=== PATIENT | male | born 1940 | race Caucasian/White ===

== ENCOUNTER → 2017-01-02 | Outpatient (CLI) | payer MEDICARE ==
[2017-01-02 16:00] LABS: BLOOD UREA NITROGEN 32 mg/dL (7-18)
[2017-01-02 16:04] LABS: ASPARTATE AMINO TRANSFERASE 17 U/L (15-37)
== END | disposition home or self-care (01) ==
LOC: CFH 12:24
PROVIDERS: ATTEND Urology
DX: N20.0 Calculus of kidney (principal); Z85.528 Personal history of other malignant neoplasm of kidney; Z80.42 Family history of malignant neoplasm of prostate
CPT/HCPCS: 36415; 71020; 76770; 80053

== ENCOUNTER → 2019-01-02 | Outpatient (CLI) | payer MEDICARE ==
[2019-01-02 13:04] LABS: ALBUMIN 3.3 g/dL (3.4-5.0); ANION GAP 4 mmol/L (5-15); CALCIUM 8.7 mg/dL (8.5-10.1); CHLORIDE 110 mmol/L (98-107)
[2019-01-02 13:08] LABS: ALANINE AMINOTRANSFERASE 19 U/L (12-78); ALKALINE PHOSPHATASE 110 U/L (45-117); BILIRUBIN,TOTAL 0.7 mg/dL (0.2-1.0); CREATININE 1.89 mg/dL (0.7-1.3); TOTAL PROTEIN 6.9 g/dL (6.4-8.2)
== END | disposition home or self-care (01) ==
LOC: CFH 10:15
PROVIDERS: ATTEND Physician Assistant
DX: Z85.528 Personal history of other malignant neoplasm of kidney (principal); Z90.5 Acquired absence of kidney
CPT/HCPCS: 36415; 71046; 76770; 80053

== ENCOUNTER 2019-05-28 09:44 | Outpatient (CLI) | payer MEDICARE | END 2019-05-28 23:59 | disposition home or self-care (01) | LOC: CVU 09:44 | PROVIDERS: ATTEND Internal Medicine Cardiovascular Disease | DX: E78.2 Mixed hyperlipidemia (principal); E11.9 Type 2 diabetes mellitus without complications; I10 Essential (primary) hypertension; R09.89 Other specified symptoms and signs involving the circulatory and respiratory systems | CPT/HCPCS: 93880 ==

== ENCOUNTER 2019-08-30 09:32 | Inpatient (IN) | payer MEDICARE ==
[~2019-08-30] VITALS: Ht 185.4 cm; Wt 85.9 kg
[~2019-08-30 09:32] MED LIST: CEFD300C37 PO; CLON0.1T2 PO; IRBE300T16 PO
[2019-08-30] MEDS ORDERED: SODIUM CHLORIDE FLUSH 10ML SYR IVF ONE (10:30)
[2019-08-30 10:38] LABS: CHLORIDE 105 mmol/L (98-107)
[2019-08-30 10:58] LABS: ALBUMIN 3.5 g/dL (3.4-5.0); ANION GAP 8 mmol/L (5-15); CALCIUM 8.5 mg/dL (8.5-10.1)
[2019-08-30 11:07] LABS: ALANINE AMINOTRANSFERASE 19 U/L (12-78); ALKALINE PHOSPHATASE 101 U/L (45-117); BILIRUBIN,TOTAL 0.8 mg/dL (0.2-1.0); CREATININE 2.19 mg/dL (0.7-1.3); FREE T4 (FREE THYROXINE) 0.96 ng/dL (0.76-1.46); TOTAL PROTEIN 7.4 g/dL (6.4-8.2)
[2019-08-30 11:53] LABS: HCT (SEDRATE) 44.1 % (39.2-51.8)
[2019-08-30 11:55] LABS: BASOPHILS # (AUTO) 0.01 x10^3/uL (0-0.1); BASOPHILS % (AUTO) 0 % (0-1); EOSINOPHILS % (AUTO) 0 % (1-7); LYMPHOCYTES # (AUTO) 0.61 x10^3/uL (1-3.4); LYMPHOCYTES % (AUTO) 7 % (22-44); MD NO; MEAN CORPUSCULAR HEMOGLOBIN 29.3 pg (27.5-34.5); MEAN CORPUSCULAR HGB CONC 32.4 g/dL (33.2-36.2); MEAN CORPUSCULAR VOLUME 90.4 fL (81-97); MEAN PLATELET VOLUME 8.8 fL (7.4-10.4); MONOCYTES # (AUTO) 0.37 x10^3/uL (0.2-0.8); MONOCYTES % (AUTO) 4 % (2-9); NEUTROPHILS # (AUTO) 8.35 x10^3/uL (1.8-6.8); NEUTROPHILS % (AUTO) 89 % (42-75); PLATELET COUNT 226 x10^3/uL (130-400); RED BLOOD COUNT 4.84 x10^6/uL (4.38-5.82); RED CELL DISTRIBUTION WIDTH 13.1 % (9.4-14.8)
[2019-08-30] MEDS ORDERED: SODIUM CHLORIDE FLUSH 10ML SYR IVF PRN (12:30)
[2019-08-30 12:40] LABS: ACETONE, SERUM Negative (Negative)
--- NOTE | 2019-08-30 12:55 | NUR ---
PT PRESENTS TO ED TODAY WITH COMPLAINTS OF TRANSIENT EPISODES OF BODY WIDE TINGLING, A SENSATION OF FLUSHING, AND SHORT TERM CONFUSION AND/OR MEMORY LOSS. PT ISSUE HAS BEEN ONGOING AND PCP IS AWARE. PT'S [employer] RECENTLY ORDERED AN OUTPATIENT HALTER MONITOR, WHICH IS NOW COMPLETE, BUT REPORT HAS NOT BEEN READ AND FOLLOWED UP WITH AT THIS TIME. PCP ALSO DISCONTINUED PT'S CLONIDINE, STARTED HCTZ, IN AN ATTEMPT TO RESOLVE ISSUE. PT AND WERE CONTENT TO CONTINUE WITH OUTPATIENT TREATMENT OF THIS ISSUE UNTIL THIS MORNING WHEN PT EXPERIENCED 8 SEPARATE EPISODES. HAD ANOTHER HERE IN CT AFTER ARRIVAL. PT ALSO HAS HISTORY OF ONE KIDNEY REMOVAL, REMAINING IS POLYCYSTIC. REPORT CALLED TO [facility], RECEIVING RN. PT AND UPDATED ON PLAN OF CARE. DENIES ANY NEEDS OR CONCERNS AT THIS TIME. AWAITING TRANSPORT.
[2019-08-30 13:00] LABS: HEMOGLOBIN A1C 6.3 % (4.2-6.3)
[2019-08-30] MEDS ORDERED: ONDANSETRON ODT 4 MG PO PRN (13:00)
[2019-08-30] MEDS ORDERED: ACETAMINOPHEN 325 MG TABLET PO PRN (13:00)
[2019-08-30] MEDS ORDERED: ONDANSETRON 2MG/ML, 2ML IVPush PRN (13:00)
[2019-08-30 13:25] VITALS: BP 133/66
[2019-08-30] MEDS ORDERED: CHOL2000 PO (13:35)
[2019-08-30] MEDS ORDERED: HYDROCHLOROTH12.5 MG PO (13:35)
[2019-08-30 14:27] LABS: CULTURE INDICATED? NO; MICROSCOPIC AUTO
[2019-08-30 20:18] VITALS: BP 138/65
[2019-08-31 01:37] VITALS: BP 152/76
[2019-08-31 05:33] LABS: BASOPHILS # (AUTO) 0.05 x10^3/uL (0-0.1); BASOPHILS % (AUTO) 1 % (0-1); EOSINOPHILS # (AUTO) 0.22 x10^3/uL (0-0.4); EOSINOPHILS % (AUTO) 2 % (1-7); LYMPHOCYTES # (AUTO) 1.65 x10^3/uL (1-3.4); LYMPHOCYTES % (AUTO) 17 % (22-44); MD NO; MEAN CORPUSCULAR HEMOGLOBIN 29.9 pg (27.5-34.5); MEAN CORPUSCULAR HGB CONC 32.8 g/dL (33.2-36.2); MEAN CORPUSCULAR VOLUME 91.1 fL (81-97); MEAN PLATELET VOLUME 9.4 fL (7.4-10.4); MONOCYTES # (AUTO) 1.12 x10^3/uL (0.2-0.8); MONOCYTES % (AUTO) 12 % (2-9); NEUTROPHILS % (AUTO) 69 % (42-75); PLATELET COUNT 211 x10^3/uL (130-400); RED BLOOD COUNT 4.76 x10^6/uL (4.38-5.82); RED CELL DISTRIBUTION WIDTH 13.1 % (9.4-14.8)
[2019-08-31 05:39] LABS: ANION GAP 8 mmol/L (5-15); CALCIUM 8.7 mg/dL (8.5-10.1); CHLORIDE 107 mmol/L (98-107)
[2019-08-31 05:42] LABS: CREATININE 2.07 mg/dL (0.7-1.3)
[2019-08-31 06:40] VITALS: BP 157/77
[2019-08-31] MEDS: SODIUM CHLORIDE 0.9% 1,000 ML IV SCH ×2 (09:37→20:13)
[2019-08-31 13:09] VITALS: BP 167/85
[2019-08-31 17:18] VITALS: BP 164/87
[2019-08-31 20:10] VITALS: BP 153/78
[2019-08-31] MEDS: AMLODIPINE 5 MG TABLET PO SCH (20:16)
[2019-09-01 01:11] VITALS: BP 162/84
[2019-09-01 04:47] LABS: ALBUMIN 3.1 g/dL (3.4-5.0); ANION GAP 7 mmol/L (5-15); CALCIUM 8.3 mg/dL (8.5-10.1); CHLORIDE 113 mmol/L (98-107)
[2019-09-01 04:50] LABS: ALANINE AMINOTRANSFERASE 21 U/L (12-78); ALKALINE PHOSPHATASE 84 U/L (45-117); BILIRUBIN,TOTAL 0.7 mg/dL (0.2-1.0); CREATININE 1.86 mg/dL (0.7-1.3); TOTAL PROTEIN 6.4 g/dL (6.4-8.2)
[2019-09-01] MEDS: SODIUM CHLORIDE 0.9% 1,000 ML IV SCH (06:00)
[2019-09-01 07:05] VITALS: BP 178/91
[2019-09-01] MEDS: AMLODIPINE 5 MG TABLET PO SCH (07:42)
[2019-09-01 09:33] VITALS: BP 176/79
[2019-09-01 11:30] VITALS: BP 131/67
== END 2019-09-01 12:14 | disposition home or self-care (01) | DRG 70 ==
LOC: ED 10:15 → EDIP 12:12 → 4WST 13:18 → DCLOUNGE 09-01 12:01
PROVIDERS: ADMIT Family Medicine; ATTEND Internal Medicine
DX: G93.40 Encephalopathy, unspecified (principal); N17.0 Acute kidney failure with tubular necrosis; Z88.8 Allergy status to other drugs, medicaments and biological substances; E11.22 Type 2 diabetes mellitus with diabetic chronic kidney disease; E11.65 Type 2 diabetes mellitus with hyperglycemia; I12.9 Hypertensive chronic kidney disease with stage 1 through stage 4 chronic kidney disease, or unspecified chronic kidney disease; N18.3 Chronic kidney disease, stage 3 (moderate); Z90.5 Acquired absence of kidney; Z83.6 Family history of other diseases of the respiratory system; Z80.42 Family history of malignant neoplasm of prostate; R00.1 Bradycardia, unspecified
CPT/HCPCS: 36415; 70450; 71045; 80048; 80053; 81001; 82010; 82306; 82607; 83036; 83735; 84100; 84145; 84439; 84443; 85025; 85651; 86140; 86592; 87040; 93005; 95813; G0378; J7030

== ENCOUNTER 2020-03-29 07:52 | Outpatient (CLI) | payer MEDICARE ==
[~2020-03-29 07:52] MED LIST changes: +CHOL2000 PO; +HYDROCHLOROTH12.5 MG PO; -IRBE300T16 PO; +IRBE300T8 PO
== END 2020-03-29 23:59 | disposition home or self-care (01) ==
LOC: CFH 07:52
PROVIDERS: ATTEND Physician Assistant
DX: N28.1 Cyst of kidney, acquired (principal); Z90.5 Acquired absence of kidney; Z85.528 Personal history of other malignant neoplasm of kidney
CPT/HCPCS: 71046; 76770

== ENCOUNTER → 2021-04-29 | Outpatient (CLI) | payer MEDICARE ==
[~2021-04-29] MED LIST changes: +GADOTERATE 10 MMOL/20 ML VIAL ONE
== END | disposition home or self-care (01) ==
LOC: RAD 10:38
PROVIDERS: ATTEND Physician Assistant
DX: N28.1 Cyst of kidney, acquired (principal); N13.30 Unspecified hydronephrosis; Z90.49 Acquired absence of other specified parts of digestive tract; Z85.528 Personal history of other malignant neoplasm of kidney
CPT/HCPCS: 74183; A9575